=== PATIENT | female | born 1975 | race African-American/Black ===

== ENCOUNTER 2024-03-20 07:57 | Day surgery (SDC) | payer OTHER ==
[2024-03-20 08:05] VITALS: BMI 25.7
[2024-03-20 08:19] VITALS: RESP 18; TEMP 97.1
[2024-03-20 09:53] VITALS: BP 138/82; PULSE 84
== END 2024-03-20 10:10 | disposition home or self-care (01) ==
LOC: FASU-ENDO 07:57
PROVIDERS: ATTEND Internal Medicine Gastroenterology
PROC: 0DJD8ZZ Inspection of Lower Intestinal Tract, Via Natural or Artificial Opening Endoscopic (ICD-10-PCS; principal; 2024-03-20 08:44)
DX: Z12.11 Encounter for screening for malignant neoplasm of colon (principal); K64.1 Second degree hemorrhoids
CPT/HCPCS: 81025